=== PATIENT | female | born 1995 | race Caucasian/White ===

== ENCOUNTER → 2020-05-15 15:20 | Outpatient (BNVA) | payer OTHER, SELFPAY | PROVIDERS: PCP Nurse Practitioner Family; Visit Provider Nurse Practitioner Family | DX: R11.0 Nausea (principal); F11.23 Opioid dependence with withdrawal | CPT/HCPCS: 85025 ==

== ENCOUNTER 2022-11-10 16:31 | Emergency (ER) | payer SELFPAY ==
--- NOTE | 2022-11-10 16:44 | XRR_ITS ---
PROCEDURE INFORMATION: Exam: XR Right Foot Exam date and time: 11/10/2022 4:49 PM Age: 27 years old Clinical indication: Pain; Foot; Right; Additional info: Injury, dropped toilet on RT foot TECHNIQUE: Imaging protocol: Radiologic exam of the right foot. Views: 3 or more views. COMPARISON: No relevant prior studies available. FINDINGS: Bones/joints: Normal. Soft tissues: Nonspecific soft tissue swelling. XR/XR foot RT min 3V* [id number] IMPRESSION: No acute findings.
[2022-11-10 17:05] VITALS: BP 114/75; PULSE 97; RESP 18; TEMP 36.8; O2SAT 97; BMI 30.1
--- NOTE | 2022-11-10 17:14 | W.ED.EXTPRO ---
HPI - Extremity Problem General: Chief complaint: Extremity Injury, Lower Stated complaint: hurt right foot Time Seen by Provider: 11/10/22 17:13 History of Present Illness: 27-year-old female was helping move a toilet today when the top came off the toilet landing against her foot and ankle area of the right foot. Patient has had increased pain and discomfort with swelling and bruising to the right ankle. Patient appears nontoxic. Patient reports difficulty ambulating due to pain and discomfort. Patient states she cannot bear weight on it. Patient appears in mild pain at rest. Patient appears nontoxic. Review of Systems General: Reports: 10 or more systems reviewed and unremarkable except in HPI and below Musc: Reports: extremity pain and extremity swelling [facility] ED PFSH: Medical History (Updated 11/10/22 @ 17:39 by GURPREET Almanzar) Anxiety Surgical History History of tonsillectomy and adenoidectomy History of tympanoplasty age 9 yrs Social History Smoking and tobacco status: never smoked Alcohol intake: never Substance/Drug Use: never Adopted: No Lives independently: Yes Household members: children Marital status: Single Number of children: 3 Current occupational status: unemployed Pets and animals: No Current gender identity: Female Physical Exam Const: COMMON NORMALS: alert HENMT: COMMON NORMALS: atraumatic HEAD & SCALP: atraumatic Neck/C-Spine: COMMON NORMALS: full ROM Resp: COMMON NORMALS: normal respiratory effort Cardio: COMMON NORMALS: regular rate RATE: regular rate Back/Pelvis: COMMON NORMALS: thoracic and lumbar spine normal to inspection Extremity: RIGHT LOWER EXTREMITY: Yes foot & digits (Swelling and bruising to the right anterior ankle) Right ankle: Yes inspection, Yes palpation (Bilateral mallear tenderness), Yes ROM (Decreased range of motion due to swelling and pain) and Yes neurovascular exam (Distal cap refill pulses normal) Neuro: SENSORIUM/ORIENTATION: Yes alert Skin: COMMON NORMALS: turgor normal GENERAL SKIN EXAM: turgor normal Course Vital Signs: Vital signs: Vital Signs Temperature 98.3 F 11/10/22 17:05 Pulse Rate 97 11/10/22 17:05 Respiratory Rate 18 11/10/22 17:05 Blood Pressure 114/75 09/27/23 17:05 Pulse Oximetry 97 11/10/22 17:05 Oxygen Delivery Me thod Room Air 11/10/22 17:05 MDM - Extremity (Nontraumatic) Medical Decision Making 27-year-old female comes in today with concerns for injury to the right ankle and foot. On exam we note some swelling and bruising to the ankle. Distal pulses and sensation are intact. Decreased range of motion due to pain and swelling. Differential diagnosis includes fracture, sprain, contusion, dislocation. X-ray noted possible distal fibular fracture that is nondisplaced. We will go ahead and place patient in a stirrup splint and crutches with follow-up with podiatry. Patient was given instructions to call podiatry office for a follow-up appointment and return to the ER as needed for new concerns or worsening symptoms. Lab Data Radiology Impressions Foot X-Ray 11/10/22 16:44 IMPRESSION: No acute findings. Ankle X-Ray 11/10/22 17:20 IMPRESSION: As above. All radiology interpretation(s) finalized by discharge Discharge Plan Discharge Patient Disposition: Home Clinical Impression: Fracture of distal fibula Qualifiers: Encounter type: initial encounter Fracture type: closed Fracture morphology: other fracture Laterality: right Qualified Code(s): S82.831A - Other fracture of upper and lower end of right fibula, initial encounter for closed fracture Condition: Stable Prescriptions: New hydrocodone-acetaminophen 5-325 mg tablet 1 tab PO Q8H PRN (Reason: pain (scale score 7-10)) Qty: 10 0RF No Action NuvaRing 0.12-0.015 mg/24 hr ring 1 vag ring VAGINAL ONCE Qty: 3 11RF Discharge Orders: Discharge ED (Routine); Ordered 11/10/22 Ordered By: Alonso Bautista Referrals: Ian Soto DPM [Physician] - Citlalli Meyer FNP [Primary Care Provider] - Discharge Diet: Usual diet Discharge Activity: Limit activity as instructed Patient Instructions: Ankle Fracture (ED), Opioid Safety, Pain Management Activity Restrictions/Additional Instructions: It appears you have a nondisplaced fracture of the distal fibula which is part of the ankle joint. Keep splint intact clean and dry. Follow-up with podiatry for further evaluation and treatment. Return to ER for new concerns. Coding Level of Care Code ED Special Equipment Technician for Matthew Stevens
--- NOTE | 2022-11-10 17:20 | XRR_ITS ---
PROCEDURE INFORMATION: Exam: XR Right Ankle Exam date and time: 11/10/2022 5:24 PM Age: 27 years old Clinical indication: Injury or trauma; Other: Dropped toilet on RT ankle; Blunt trauma; Right TECHNIQUE: Imaging protocol: Radiologic exam of the right ankle. Views: 3 or more views. COMPARISON: CR (LOW EXM, ) 11/10/2022 4:49 PM FINDINGS: There is lateral soft tissue swelling. There is a transverse vague lucent line through the distal fibula seen best on the AP view. If there is point tenderness in this area, I cannot exclude a nondisplaced fracture. Clinical correlation is needed. The ankle is otherwise normal. XR/XR ankle RT min 3V* [id number] IMPRESSION: As above.
[2022-11-10] MEDS: HYDROcodone-acetaminophen 7.5-325 mg Tablet 1 TAB PO (17:29)
== END 2022-11-10 17:58 | disposition home or self-care (01) ==
PROVIDERS: Emergency Provider Nurse Practitioner Family; PCP Nurse Practitioner Family
DX: S82.831A Other fracture of upper and lower end of right fibula, initial encounter for closed fracture (principal); W20.8XXA Other cause of strike by thrown, projected or falling object, initial encounter
CPT/HCPCS: 73610; 73630; 99283; E0114

== ENCOUNTER 2023-01-04 21:41 | Emergency (ER) | payer SELFPAY ==
[2023-01-04 21:45] VITALS: BP 140/92; PULSE 102; RESP 18; TEMP 36.8; O2SAT 99; BMI 34.4
[2023-01-04 21:51] VITALS: BP 145/92; PULSE 92; RESP 17; O2SAT 98
--- NOTE | 2023-01-04 21:54 | ED_ITS ---
HPI - Nausea/Vomiting/Diarrhea General: Chief complaint: Nausea/Vomiting/Diarrhea Stated complaint: V\N Cough Time Seen by Provider: 01/04/23 21:53 History of Present Illness: 27-year-old female comes in today with complaints of nausea vomiting and diarrhea for the last 4 days. Patient is concerned that she may be . Patient did not report any other symptoms. Patient appears nontoxic. Patient appears in no pain. Patient reports no gallbladder surgery or appendicitis. Patient does routinely smoke nicotine and THC. Associated nausea: Yes Associated symtoms: Reports nausea; Denies chest pain or headache(s) Review of Systems General: Reports: 10 or more systems reviewed and unremarkable except in HPI and below Const: Reports: chills; Denies: fever(s) or body aches ENMT: Denies: throat pain Card: Denies: chest pain Resp: Denies: dyspnea GI: Reports: nausea, vomiting, heartburn and diarrhea : Reports: other (Last menstrual cycle 23 November); Denies: difficulty voiding or vaginal discharge Musc: Denies: neck pain or back pain Skin/Breast: Denies: rash Neuro: Denies: headache(s) PFS ED PFSH: Medical History (Updated 01/04/23 @ 23:35 by GURPREET Almanzar) Anxiety Surgical History History of tonsillectomy and adenoidectomy History of tympanoplasty age 9 yrs Social History Smoking and tobacco/nicotine status: never used tobacco/nicotine Alcohol intake: never Substance/Drug Use: never Adopted: No Lives independently: Yes Household members: children Marital status: Single Number of children: 3 Current occupational status: unemployed Pets and animals: No Current gender identity: Female Female Reproductive History: Date of last menstrual period: 11/23/22 Physical Exam Const: COMMON NORMALS: patient oriented x3 HENMT: COMMON NORMALS: normocephalic HEAD & SCALP: normocephalic Neck/C-Spine: COMMON NORMALS: full ROM and no meningeal signs CERVICAL SPINE: No Cervical spine tenderness Resp: COMMON NORMALS: normal respiratory effort and clear to auscultation bilaterally AUSCULTATION: clear to auscultation bilaterally Cardio: COMMON NORMALS: regular rate and regular rhythm RATE: regular rate RHYTHM: regular rhythm GI: COMMON NORMALS: Soft to palpation and non-tender PALPATION: Yes Soft to palpation : COMMON NORMALS: Yes no CVA tenderness BLADDER/KIDNEY EXAM: Yes no CVA tenderness Back/Pelvis: COMMON NORMALS: no CVA tenderness Extremity: COMMON NORMALS: no pedal edema Neuro: COMMON NORMALS: patient oriented x3 MENINGEAL SIGNS: Yes no meningeal signs Skin: COMMON NORMALS: turgor normal GENERAL SKIN EXAM: turgor normal Course Vital Signs: Vital signs: Vital Signs Temperature 98.2 F 01/04/23 21:45 Pulse Rate 92 01/04/23 21:51 Respiratory Rate 17 01/04/23 21:51 Blood Pressure 145/92 01/04/23 21:51 Pulse Oximetry 98 01/04/23 21:51 Oxygen Delivery Me thod Room Air 01/04/23 21:51 MDM - Nausea/Vomiting/Diarrhea Medical Decision Making 27-year-old female comes in today for complaints of nausea vomiting and diarrhea for 4 days. Patient is also late for her period. On exam abdomen is soft without guarding or rebound tenderness. No CVA tenderness. Patient moves all extremities well. Oral mucosa is normal. Patient appears nontoxic. Patient appears in no pain. Differential diagnosis includes but not limited to , gastroenteritis, gallbladder disease, pancreatitis, dehydration, urinary tract infection. CBC showed a white count of 12,000, CMP was unremarkable. Urinalysis had increased number of white blood cells and leukocyte esterases. Believe the patient probably has a gastroenteritis and may be a secondary urinary tract infection. Will place her on Macrobid for the urinary tract infection. Will give her some Zofran to use as needed for nausea. Patient with stable appearance and appears nontoxic. Patient agreed to plan of treatment and was discharged home. Lab Data 01/04/23 22:45 01/04/23 22:45 Laboratory Results WBC 12.56 10^3/uL (3.29-11.43) H 01/04/23 22:45 RBC 4.68 10^6/uL (3.85-5.65) 01/04/23 22:45 Hgb 14.10 g/dL (11.27-16.99) 01/04/23 22:45 Hct 43.0 % (36-47) 01/04/23 22:45 MCV 91.9 fl (85-98) 01/04/23 22:45 MCH 30.1 pg (27-33) 01/04/23 22:45 MCHC 32.8 g/dL (30-55) 01/04/23 22:45 RDW 13.0 % (12.1-15.1) 01/04/23 22:45 Plt Count 248 10^3/cmm (157-399) 01/04/23 22:45 MPV 11.6 fL (7.4-10.4) H 01/04/23 22:45 Neut % (Auto) 64.8 % 01/04/23 22:45 Lymph % (Auto) 26.2 % 01/04/23 22:45 [place] % (Auto) 6.6 % 01/04/23 22:45 Eos % (Auto) 1.5 % 01/04/23 22:45 Baso % (Auto) 0.5 % 01/04/23 22:45 Neut # (Auto) 8.14 10^3/uL (1.8-7.7) H 01/04/23 22:45 Lymph # (Auto) 3.3 10^3/uL (0.8-4.8) 01/04/23 22:45 [place] # (Auto) 0.8 10^3/uL (0.2-0.9) 01/04/23 22:45 Eos # (Auto) 0.2 10^3/uL (0.0-0.8) 01/04/23 22:45 Baso # (Auto) 0.1 10^3/uL (0.0-0.1) 01/04/23 22:45 Nucleated RBC % (auto) 0 % 01/04/23 22:45 Nucleated RBCs # 0.0 /100WBC 01/04/23 22:45 Sodium 139 mmol/L (136-145) 01/04/23 22:45 Potassium 4.1 mmol/L (3.5-5.1) 01/04/23 22:45 Chloride 104 mmol/L (98-107) 01/04/23 22:45 Carbon Dioxide 23 mmol/L (22-29) 01/04/23 22:45 Anion Gap 16.1 (5-19) 01/04/23 22:45 BUN 9 mg/dL (6-20) 01/04/23 22:45 Creatinine 0.7 mg/dL (0.5-0.9) 01/04/23 22:45 GFR Calculation 100.4 mL/min (90-130) 01/04/23 22:45 Glucose 125 mg/dL (65-115) H 01/04/23 22:45 Calculated Osmolality 288 mOsm/kg (285-295) 01/04/23 22:45 Calcium 9.5 mg/dL (8.5-10.5) 01/04/23 22:45 Total Bilirubin 0.2 mg/dL (0.15-1.2) 01/04/23 22:45 AST 18 U/L (0-32) 01/04/23 22:45 ALT 20 U/L (0-33) 01/04/23 22:45 Alkaline Phosphatase 94 U/L (35-105) 01/04/23 22:45 Total Protein 7.5 g/dL (6.6-8.7) 01/04/23 22:45 Albumin 4.4 g/dL (3.5-5.2) 01/04/23 22:45 Globulin 3.1 g/dL (1.3-4.6) 01/04/23 22:45 Lipase 41 U/L (13-60) 01/04/23 22:45 HCG, Qual Negative (Negative) 01/04/23 22:45 Urine Color Yellow (Yellow) 01/04/23 22:18 Urine Appearance Clear (CLEAR) 01/04/23 22:18 Urine pH 6 (5-7) 01/04/23 22:18 Ur Specific [place] 1.015 (1.005-1.030) 01/04/23 22:18 Urine Protein Neg (Negative) 01/04/23 22:18 Urine Glucose (UA) Norm (Normal) 01/04/23 22:18 Urine Ketones Negative (Negative) 01/04/23 22:18 Urine Blood 3+ (Negative) H 01/04/23 22:18 Urine Nitrate Negative (Negative) 01/04/23 22:18 Urine Bilirubin Neg (Negative) 01/04/23 22:18 Urine Urobilinogen Norm mg/dL (Negative) 01/04/23 22:18 Ur Leukocyte Esterase 2+ (Negative) H 01/04/23 22:18 Urine RBC 0-4 /hpf (0-2) H 01/04/23 22:18 Urine WBC 15-25 /hpf (0-5) H 01/04/23 22:18 Ur Squamous Epith Cells 0-4 /hpf (0-5) H 01/04/23 22:18 Amorphous Sediment Not Reportable 01/04/23 22:18 Urine Bacteria Trace /hpf (NONE) 01/04/23 22:18 No radiology studies performed this visit Discharge Plan Discharge Patient Disposition: Home Clinical Impression: Gastroenteritis UTI (urinary tract infection) Qualifiers: Urinary tract infection type: site unspecified Hematuria presence: without hematuria Qualified Code(s): N39.0 - Urinary tract infection, site not specified Condition: Stable Prescriptions: New Macrobid 100 mg capsule 100 mg PO BID 5 Days Qty: 10 0RF Rx Instructions: must administer with a meal/food ondansetron 4 mg tablet,disintegrating 4 mg PO Q8H PRN (Reason: nausea and vomiting) Qty: 7 0RF No Action NuvaRing 0.12-0.015 mg/24 hr ring 1 vag ring VAGINAL ONCE Qty: 3 11RF hydrocodone-acetaminophen 5-325 mg tablet 1 tab PO Q8H PRN (Reason: pain (scale score 7-10)) Qty: 10 0RF Discharge Orders: Discharge ED (Routine); Ordered 01/04/23 Ordered By: Alonso Bautista Referrals: Citlalli Meyer FNP [Primary Care Provider] - Discharge Diet: Usual diet Discharge Activity: Increase activity as tolerated Patient Instructions: Gastroenteritis (ED) Activity Restrictions/Additional Instructions: Home and rest. Drink lots of fluids. Continue with medications as directed. Return to ED for worsening symptoms such as high fever greater than 100.4, severe abdominal pain, severe shortness of breath, blood in vomit or stool. Coding Level of Care Code ED Retail Customer Service Representative for Matthew Stevens
[2023-01-04 22:36] LABS: Add Urine Microscopic? YES; Bilirubin Urine Neg (Negative); Blood Urine 3+ (Negative); Glucose Urine UA Norm (Normal); Ketones Urine Negative (Negative); Leukocyte Esterase Urine 2+ (Negative); Nitrate Urine Negative (Negative); Protein Urine Neg (Negative); Specific Gravity, Urine 1.015 (1.005-1.030); Urine Appearance Clear (CLEAR); Urine Color Yellow (Yellow); Urobilinogen Urine Norm (Negative); pH Urine 6 (5-7)
[2023-01-04 22:37] LABS: Add Urine Culture? Yes; Bacteria Urine TRACE /hpf; RBC Urine 0-4 /hpf (0-2); Squamous Epithelial Cell Urine 0-4 /hpf (0-5); WBC Urine 15-25 /hpf (0-5)
[2023-01-04 22:53] LABS: Basophils # 0.1 10^3/uL (0.0-0.1); Basophils % 0.5 %; Eosinophils # 0.2 10^3/uL (0.0-0.8); Eosinophils % 1.5 %; Lymphocytes # 3.3 10^3/uL (0.8-4.8); Lymphocytes % 26.2 %; Mean Corpuscular HGB Conc 32.8 g/dL (30-55); Mean Corpuscular Hemoglobin 30.1 pg (27-33); Mean Corpuscular Volume 91.9 fl (85-98); Mean Platelet Volume 11.6 fL (7.4-10.4); Monocytes # 0.8 10^3/uL (0.2-0.9); Monocytes % 6.6 %; Neutrophils # 8.14 10^3/uL (1.8-7.7); Neutrophils % 64.8 %; Nucleated Red Blood Cells % 0 %; Platelet Count 248 10^3/cmm (157-399); Red Blood Count 4.68 10^6/uL (3.85-5.65); White Blood Count 12.56 10^3/uL (3.29-11.43)
[2023-01-04 23:03] LABS: HCG, Serum Qual Negative (Negative)
[2023-01-04 23:08] LABS: Alanine Aminotransferase 20 U/L (0-33); Albumin Level 4.4 g/dL (3.5-5.2); Alkaline Phosphatase 94 U/L (35-105); Anion Gap 16.1 (5-19); Aspartate Amino Transferase 18 U/L (0-32); Blood Urea Nitrogen 9 mg/dL (6-20); Calcium 9.5 mg/dL (8.5-10.5); Carbon Dioxide 23 mmol/L (22-29); Chloride 104 mmol/L (98-107); Globulin 3.1 g/dL (1.3-4.6); Glomerular Filtration Rate 100.4 mL/min (90-130); Glucose 125 mg/dL (65-115); Lipase 41 U/L (13-60); Osmolality Calculated 288 mOsm/kg (285-295); Potassium 4.1 mmol/L (3.5-5.1); Sodium 139 mmol/L (136-145); Total Bilirubin 0.2 mg/dL (0.15-1.2); Total Protein 7.5 g/dL (6.6-8.7)
[2023-01-04] MEDS: nitrofurantoin SR (BID) 100 mg Capsule PO (23:38)
[2023-01-04] MEDS: ondansetron 4 MG Tablet PO (23:38)
[2023-01-04 23:54] VITALS: BP 145/92; PULSE 92; RESP 17; O2SAT 98
== END 2023-01-04 23:15 | disposition home or self-care (01) ==
PROVIDERS: Emergency Provider Nurse Practitioner Family; PCP Nurse Practitioner Family
DX: K52.9 Noninfective gastroenteritis and colitis, unspecified (principal); N39.0 Urinary tract infection, site not specified
CPT/HCPCS: 36415; 80053; 81001; 83690; 84703; 85025; 87086; 87186; 99283; Q0162

== ENCOUNTER 2023-05-24 11:16 | Emergency (ER) | payer SELFPAY ==
[2023-05-24 11:22] VITALS: BP 136/88; PULSE 65; RESP 16; TEMP 36.6; O2SAT 99
[2023-05-24 11:49] LABS: Basophils # 0.1 10^3/uL (0.0-0.1); Basophils % 0.6 %; Eosinophils # 0.1 10^3/uL (0.0-0.8); Eosinophils % 0.4 %; Hematocrit 41.2 % (36-47); Lymphocytes % 24.6 %; Mean Corpuscular HGB Conc 33.7 g/dL (30-55); Mean Corpuscular Hemoglobin 30.5 pg (27-33); Mean Corpuscular Volume 90.4 fl (85-98); Mean Platelet Volume 11.8 fL (7.4-10.4); Monocytes # 0.7 10^3/uL (0.2-0.9); Monocytes % 5.5 %; Neutrophils # 8.46 10^3/uL (1.8-7.7); Neutrophils % 68.4 %; Nucleated Red Blood Cells % 0 %; Platelet Count 262 10^3/cmm (157-399); Red Blood Count 4.56 10^6/uL (3.85-5.65); Red Cell Distribution Width 12.7 % (12.1-15.1); White Blood Count 12.36 10^3/uL (3.29-11.43)
--- NOTE | 2023-05-24 11:51 | ED_ITS ---
Documented by User: NORTH Dobson 05/24/23 13:40 HPI - Nausea/Vomiting/Diarrhea 2 General: Chief complaint: Nausea/Vomiting/Diarrhea Stated complaint: n/v, diarrhea Time Seen by Provider: 05/24/23 11:18 Source: patient Mode of arrival: ambulatory Limitations: no limitations History of Present Illness: Patient is a 27-year-old female presenting to the emergency department complaining of nausea, vomiting, and diarrhea for the past few days. Patient notes she is a frequent marijuana user, and that she is only able to eat if she smokes. She has never had the symptoms before, and notes that she has had too many episodes to count of both the vomiting and diarrhea. Vomiting contents appears bilious and watery. She denies any abdominal pain, fevers, breathing difficulties, chest pains, urinary symptoms, or any other symptoms at this time. She states there is a possibility that she is , however has not taken a home test. MD elicited complaint: nausea, vomiting and diarrhea Onset (ago): day(s) Description of vomiting: watery and bilious Associated nausea: Yes Associated abdominal pain: No Associated symtoms: Reports nausea; Denies bloating, chest pain, diaphoresis, dizziness, dysuria, headache(s) or palpitations Review of Systems 2 General: Reports: 10 or more systems reviewed and unremarkable except in HPI and below Const: Denies: fever(s), chills, change in appetite, change in weight or diaphoresis ENMT: Denies: throat pain or hoarseness Card: Denies: chest pain, palpitations or lightheadedness Resp: Denies: dyspnea, productive cough or wheezing GI: Reports: nausea, vomiting and diarrhea; Denies: abdominal pain, constipation, bloating, change in stool character or hematochezia : Denies: flank pain, difficulty voiding, dysuria, urinary frequency or urinary urgency Musc: Denies: neck pain or back pain Skin/Breast: Denies: rash or new lesions Neuro: Denies: headache(s) or dizziness PFSH ED 2 PFSH: Medical History Psychiatric care Anxiety Surgical History History of tonsillectomy and adenoidectomy History of tympanoplasty age 9 yrs Social History Smoking and tobacco/nicotine status: never used tobacco/nicotine Alcohol intake: never Substance/Drug Use: never Adopted: No Lives independently: Yes Household members: children Marital status: Single Number of children: 3 Current occupational status: unemployed Pets and animals: No Current gender identity: Female Physical Exam 2 Const: COMMON NORMALS: no acute distress, average body habitus, patient oriented x3, no limitations, healthy appearing, alert and well nourished G ENERAL APPEARANCE: cooperative and comfortable ORIENTATION/CONSCIOUSNESS: Yes awake HENMT: COMMON NORMALS: normocephalic, atraumatic, hearing grossly normal bilaterally, external ears normal, Normal external nose present, Normal nasal mucous membranes and turbinates present and moist oral mucous membranes HEAD & SCALP: normocephalic and atraumatic NOSE: Normal external nose present and Normal nasal mucous membranes and turbinates present EXTERNAL EAR: Yes external ears normal Eye: COMMON NORMALS: Equal, round and reactive pupils present, EOMs intact bilaterally, conjunctivae normal and normal visual ibrahim by confrontation C ONJUNCTIVA: Yes conjunctivae normal PUPIL: Yes Equal, round and reactive pupils present Neck/C-Spine: COMMON NORMALS: full ROM, supple, no meningeal signs and no JVD Resp: COMMON NORMALS: normal respiratory effort, No retractions, No use of accessory muscles and clear to auscultation bilaterally AUSCULTATION: clear to auscultation bilaterally, no crackles, no rales, no rhonchi and no wheezes Cardio: COMMON NORMALS: no JVD, regular rate, regular rhythm, S1 normal heart sound present, S2 normal heart sound present, No gallops present (Cardio), No clicks present (Cardio), No murmurs present (Cardio), No rub (Cardio) and Peripheral pulses 2+ throughout RATE: regular rate RHYTHM: regular rhythm HEART SOUNDS: S1 normal heart sound present and S2 normal heart sound present PERIPHERAL PULSES: Peripheral pulses 2+ throughout GI: COMMON NORMALS: Normal to inspection, nondistended, normoactive bowel sounds present, Soft to palpation, non-tender, No hepatosplenomegaly present and no masses AUSCULTATION: Yes normoactive bowel sounds PALPATION: Yes Soft to palpation, No Guarding due to palpation present (GI), No Rigid due to palpation and Yes No hepatosplenomegaly present RECTAL EXAM: deferred : COMMON NORMALS: Yes no CVA tenderness BLADDER/KIDNEY EXAM: Yes no CVA tenderness Back/Pelvis: COMMON NORMALS: no CVA tenderness Extremity: COMMON NORMALS: normal to inspection and full ROM Neuro: COMMON NORMALS: patient oriented x3, moves all extremities, no focal motor deficits and no sensory deficits noted SENSORIUM/ORIENTATION: Yes alert MENINGEAL SIGNS: Yes no meningeal signs Psych: COMMON NORMALS: mental status grossly normal, cooperative and speech normal SPEECH: Yes normal speech Skin: COMMON NORMALS: no rashes or lesions noted GENERAL SKIN EXAM: no rashes or lesions noted Course 2 Vital Signs: Vital signs: Vital Signs Temperature 97.9 F 05/24/23 11:22 Pulse Rate 58 L 05/24/23 13:12 Respiratory Rate 18 05/24/23 13:12 Blood Pressure 132/87 05/24/23 13:12 Pulse Oximetry 98 05/24/23 13:12 Oxygen Delivery Me thod Room Air 05/24/23 13:12 MDM - Nausea/Vomiting/Diarrhea Medical Decision Making This patient was seen and evaluated for nausea, vomiting, and diarrhea over the past few days. Patient reported she is a frequent marijuana user, and states this is the only thing that helps her eat. On arrival patient's vital stable and have remained so throughout her ED course. Physical exam overall unremarkable. CBC showed a slight elevation in white count, otherwise normal. CMP was normal. UA showed signs of urinary tract infection, of which patient will be treated with Macrobid. Patient denied IV placement for fluids and nausea medication. Her test was negative. Lipase normal. I believe patient's symptoms due to a gastroenteritis, likely from a cannabis overuse picture. I instructed her that she needs to refrain from smoking marijuana. I will also send her home with prescription for Zofran to help her keep down solids and liquids. Informed her to follow-up with her PCP and that if she has any worsening symptoms she needs to return for reevaluation. Other return precautions given and patient agrees with discharge home. Lab Data I reviewed the patient's lab results. 05/24/23 11:40 05/24/23 11:40 Laboratory Results WBC 12.36 10^3/uL (3.29-11.43) H 05/24/23 11:40 RBC 4.56 10^6/uL (3.85-5.65) 05/24/23 11:40 Hgb 13.90 g/dL (11.27-16.99) 05/24/23 11:40 Hct 41.2 % (36-47) 05/24/23 11:40 MCV 90.4 fl (85-98) 05/24/23 11:40 MCH 30.5 pg (27-33) 05/24/23 11:40 MCHC 33.7 g/dL (30-55) 05/24/23 11:40 RDW 12.7 % (12.1-15.1) 05/24/23 11:40 Plt Count 262 10^3/cmm (157-399) 05/24/23 11:40 MPV 11.8 fL (7.4-10.4) H 05/24/23 11:40 Neut % (Auto) 68.4 % 05/24/23 11:40 Lymph % (Auto) 24.6 % 05/24/23 11:40 Lasalle % (Auto) 5.5 % 05/24/23 11:40 Eos % (Auto) 0.4 % 05/24/23 11:40 Baso % (Auto) 0.6 % 05/24/23 11:40 Neut # (Auto) 8.46 10^3/uL (1.8-7.7) H 05/24/23 11:40 Lymph # (Auto) 3.0 10^3/uL (0.8-4.8) 05/24/23 11:40 Lasalle # (Auto) 0.7 10^3/uL (0.2-0.9) 05/24/23 11:40 Eos # (Auto) 0.1 10^3/uL (0.0-0.8) 05/24/23 11:40 Baso # (Auto) 0.1 10^3/uL (0.0-0.1) 05/24/23 11:40 Nucleated RBC % (auto) 0 % 05/24/23 11:40 Nucleated RBCs # 0.0 /100WBC 05/24/23 11:40 Sodium 139 mmol/L (136-145) 05/24/23 11:40 Potassium 3.8 mmol/L (3.5-5.1) 05/24/23 11:40 Chloride 108 mmol/L (98-107) H 05/24/23 11:40 Carbon Dioxide 19 mmol/L (22-29) L 05/24/23 11:40 Anion Gap 15.8 (5-19) 05/24/23 11:40 BUN 5 mg/dL (6-20) L 05/24/23 11:40 Creatinine 0.6 mg/dL (0.5-0.9) 05/24/23 11:40 GFR Calculation 119.9 mL/min (90-130) 05/24/23 11:40 Glucose 100 mg/dL (65-115) 05/24/23 11:40 Calculated Osmolality 285 mOsm/kg (285-295) 05/24/23 11:40 Calcium 9.1 mg/dL (8.5-10.5) 05/24/23 11:40 Total Bilirubin 0.4 mg/dL (0.15-1.2) 05/24/23 11:40 AST 11 U/L (0-32) 05/24/23 11:40 ALT 12 U/L (0-33) 05/24/23 11:40 Alkaline Phosphatase 84 U/L (35-105) 05/24/23 11:40 Total Protein 6.9 g/dL (6.6-8.7) 05/24/23 11:40 Albumin 4.1 g/dL (3.5-5.2) 05/24/23 11:40 Globulin 2.8 g/dL (1.3-4.6) 05/24/23 11:40 Lipase 19 U/L (13-60) 05/24/23 11:40 HCG, Qual Negative (Negative) 05/24/23 11:40 Urine Color Dark yellow (Yellow) 05/24/23 12:30 Urine Appearance Cloudy (CLEAR) A 05/24/23 12:30 Urine pH 8 (5-7) H 05/24/23 12:30 Ur Specific Arimo 1.015 (1.005-1.030) 05/24/23 12:30 Urine Protein Neg (Negative) 05/24/23 12:30 Urine Glucose (UA) Norm (Normal) 05/24/23 12:30 Urine Ketones Negative (Negative) 05/24/23 12:30 Urine Blood 3+ (Negative) H 05/24/23 12:30 Urine Nitrate Negative (Negative) 05/24/23 12:30 Urine Bilirubin Neg (Negative) 05/24/23 12:30 Prot Sulfosalicylic Acd Negative (Negative) 05/24/23 12:30 Urine Urobilinogen Norm mg/dL (Negative) 05/24/23 12:30 Ur Leukocyte Esterase 2+ (Negative) H 05/24/23 12:30 Urine RBC 5-10 /hpf (0-2) H 05/24/23 12:30 Urine WBC 80-100 /hpf (0-5) H 05/24/23 12:30 Ur Squamous Epith Cells 5-10 /hpf (0-5) H 05/24/23 12:30 Ur Transition Epith Cell 0-4 /hpf 05/24/23 12:30 Amorphous Sediment Not Reportable 05/24/23 12:30 Urine Bacteria 1+ /hpf (NONE) H 05/24/23 12:30 Urine Mucus 1+ /hpf 05/24/23 12:30 No radiology studies performed this visit Discharge Plan Discharge Patient Disposition: Home Clinical Impression: Gastroenteritis, Cannabis hyperemesis syndrome concurrent with and due to cannabis abuse Urinary tract infection Qualifiers: Urinary tract infection type: acute cystitis Hematuria presence: without hematuria Qualified Code(s): N30.00 - Acute cystitis without hematuria Condition: Stable Prescriptions: New Macrobid 100 mg capsule 100 mg PO BID 7 Days Qty: 14 0RF Rx Instructions: must administer with a meal/food ondansetron 4 mg tablet,disintegrating 4 mg PO TID PRN (Reason: nausea and vomiting) Qty: 60 0RF Discharge Orders: Discharge ED (Routine); Ordered 05/24/23 Ordered By: Ian Cardoso Referrals: Citlalli Meyer FNP [Primary Care Provider] - Discharge Diet: Usual diet Discharge Activity: Increase activity as tolerated Patient Instructions: Urinary Tract Infection in Women (ED), Gastroenteritis (ED), Cannabis Use Disorder (ED) Activity Restrictions/Additional Instructions: Bactrim as prescribed. Zofran as needed for nausea. Plenty of fluids. Please refrain from marijuana use. Follow-up with your primary care provider. Return with any new or concerning symptoms. 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[facility] [employer] Documented by User: Michael Garcia DO 05/25/23 05:50 HPI - Nausea/Vomiting/Diarrhea 2 General: Chief complaint: Nausea/Vomiting/Diarrhea Stated complaint: n/v, diarrhea Time Seen by Provider: 05/24/23 11:18 PFSH ED 2 PFSH: Medical History Psychiatric care Anxiety Surgical History History of tonsillectomy and adenoidectomy History of tympanoplasty age 9 yrs Social History Smoking and tobacco/nicotine status: never used tobacco/nicotine Alcohol intake: never Substance/Drug Use: never Adopted: No Lives independently: Yes Household members: children Marital status: Single Number of children: 3 Current occupational status: unemployed Pets and animals: No Current gender identity: Female Course 2 Vital Signs: Vital signs: Vital Signs Temperature 97.9 F 05/24/23 11:22 Pulse Rate 58 L 05/24/23 13:12 Respiratory Rate 18 05/24/23 13:12 Blood Pressure 132/87 05/24/23 13:12 Pulse Oximetry 98 05/24/23 13:12 Oxygen Delivery Me thod Room Air 05/24/23 13:12 MDM - Nausea/Vomiting/Diarrhea Medical Decision Making This patient was seen and evaluated for nausea, vomiting, and diarrhea over the past few days. Patient reported she is a frequent marijuana user, and states this is the only thing that helps her eat. On arrival patient's vital stable and have remained so throughout her ED course. Physical exam overall unremarkable. CBC showed a slight elevation in white count, otherwise normal. CMP was normal. UA showed signs of urinary tract infection, of which patient will be treated with Macrobid. Patient denied IV placement for fluids and nausea medication. Her test was negative. Lipase normal. I believe patient's symptoms due to a gastroenteritis, likely from a cannabis overuse picture. I instructed her that she needs to refrain from smoking marijuana. I will also send her home with prescription for Zofran to help her keep down solids and liquids. Informed her to follow-up with her PCP and that if she has any worsening symptoms she needs to return for reevaluation. Other return precautions given and patient agrees with discharge home. Chart reviewed Lab Data 05/24/23 11:40 05/24/23 11:40 Laboratory Results WBC 12.36 10^3/uL (3.29-11.43) H 05/24/23 11:40 RBC 4.56 10^6/uL (3.85-5.65) 05/24/23 11:40 Hgb 13.90 g/dL (11.27-16.99) 05/24/23 11:40 Hct 41.2 % (36-47) 05/24/23 11:40 MCV 90.4 fl (85-98) 05/24/23 11:40 MCH 30.5 pg (27-33) 05/24/23 11:40 MCHC 33.7 g/dL (30-55) 05/24/23 11:40 RDW 12.7 % (12.1-15.1) 05/24/23 11:40 Plt Count 262 10^3/cmm (157-399) 05/24/23 11:40 MPV 11.8 fL (7.4-10.4) H 05/24/23 11:40 Neut % (Auto) 68.4 % 05/24/23 11:40 Lymph % (Auto) 24.6 % 05/24/23 11:40 Lasalle % (Auto) 5.5 % 05/24/23 11:40 Eos % (Auto) 0.4 % 05/24/23 11:40 Baso % (Auto) 0.6 % 05/24/23 11:40 Neut # (Auto) 8.46 10^3/uL (1.8-7.7) H 05/24/23 11:40 Lymph # (Auto) 3.0 10^3/uL (0.8-4.8) 05/24/23 11:40 Lasalle # (Auto) 0.7 10^3/uL (0.2-0.9) 05/24/23 11:40 Eos # (Auto) 0.1 10^3/uL (0.0-0.8) 05/24/23 11:40 Baso # (Auto) 0.1 10^3/uL (0.0-0.1) 05/24/23 11:40 Nucleated RBC % (auto) 0 % 05/24/23 11:40 Nucleated RBCs # 0.0 /100WBC 05/24/23 11:40 Sodium 139 mmol/L (136-145) 05/24/23 11:40 Potassium 3.8 mmol/L (3.5-5.1) 05/24/23 11:40 Chloride 108 mmol/L (98-107) H 05/24/23 11:40 Carbon Dioxide 19 mmol/L (22-29) L 05/24/23 11:40 Anion Gap 15.8 (5-19) 05/24/23 11:40 BUN 5 mg/dL (6-20) L 05/24/23 11:40 Creatinine 0.6 mg/dL (0.5-0.9) 05/24/23 11:40 GFR Calculation 119.9 mL/min (90-130) 05/24/23 11:40 Glucose 100 mg/dL (65-115) 05/24/23 11:40 Calculated Osmolality 285 mOsm/kg (285-295) 05/24/23 11:40 Calcium 9.1 mg/dL (8.5-10.5) 05/24/23 11:40 Total Bilirubin 0.4 mg/dL (0.15-1.2) 05/24/23 11:40 AST 11 U/L (0-32) 05/24/23 11:40 ALT 12 U/L (0-33) 05/24/23 11:40 Alkaline Phosphatase 84 U/L (35-105) 05/24/23 11:40 Total Protein 6.9 g/dL (6.6-8.7) 05/24/23 11:40 Albumin 4.1 g/dL (3.5-5.2) 05/24/23 11:40 Globulin 2.8 g/dL (1.3-4.6) 05/24/23 11:40 Lipase 19 U/L (13-60) 05/24/23 11:40 HCG, Qual Negative (Negative) 05/24/23 11:40 Urine Color Dark yellow (Yellow) 05/24/23 12:30 Urine Appearance Cloudy (CLEAR) A 05/24/23 12:30 Urine pH 8 (5-7) H 05/24/23 12:30 Ur Specific Arimo 1.015 (1.005-1.030) 05/24/23 12:30 Urine Protein Neg (Negative) 05/24/23 12:30 Urine Glucose (UA) Norm (Normal) 05/24/23 12:30 Urine Ketones Negative (Negative) 05/24/23 12:30 Urine Blood 3+ (Negative) H 05/24/23 12:30 Urine Nitrate Negative (Negative) 05/24/23 12:30 Urine Bilirubin Neg (Negative) 05/24/23 12:30 Prot Sulfosalicylic Acd Negative (Negative) 05/24/23 12:30 Urine Urobilinogen Norm mg/dL (Negative) 05/24/23 12:30 Ur Leukocyte Esterase 2+ (Negative) H 05/24/23 12:30 Urine RBC 5-10 /hpf (0-2) H 05/24/23 12:30 Urine WBC 80-100 /hpf (0-5) H 05/24/23 12:30 Ur Squamous Epith Cells 5-10 /hpf (0-5) H 05/24/23 12:30 Ur Transition Epith Cell 0-4 /hpf 05/24/23 12:30 Amorphous Sediment Not Reportable 05/24/23 12:30 Urine Bacteria 1+ /hpf (NONE) H 05/24/23 12:30 Urine Mucus 1+ /hpf 05/24/23 12:30 Discharge Plan Discharge Patient Disposition: Home Clinical Impression: Gastroenteritis, Cannabis hyperemesis syndrome concurrent with and due to cannabis abuse Urinary tract infection Qualifiers: Urinary tract infection type: acute cystitis Hematuria presence: without hematuria Qualified Code(s): N30.00 - Acute cystitis without hematuria Condition: Stable Prescriptions: New Macrobid 100 mg capsule 100 mg PO BID 7 Days Qty: 14 0RF Rx Instructions: must administer with a meal/food ondansetron 4 mg tablet,disintegrating 4 mg PO TID PRN (Reason: nausea and vomiting) Qty: 60 0RF Discharge Orders: Discharge ED (Routine); Ordered 05/24/23 Ordered By: Ian Cardoso Referrals: Citlalli Meyer FNP [Primary Care Provider] - Discharge Diet: Usual diet Discharge Activity: Increase activity as tolerated Patient Instructions: Urinary Tract Infection in Women (ED), Gastroenteritis (ED), Cannabis Use Disorder (ED) Activity Restrictions/Additional Instructions: Bactrim as prescribed. Zofran as needed for nausea. Plenty of fluids. Please refrain from marijuana use. Follow-up with your primary care provider. Return with any new or concerning symptoms. 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
[2023-05-24 12:04] LABS: Alanine Aminotransferase 12 U/L (0-33); Albumin Level 4.1 g/dL (3.5-5.2); Alkaline Phosphatase 84 U/L (35-105); Anion Gap 15.8 (5-19); Aspartate Amino Transferase 11 U/L (0-32); Blood Urea Nitrogen 5 mg/dL (6-20); Calcium 9.1 mg/dL (8.5-10.5); Carbon Dioxide 19 mmol/L (22-29); Chloride 108 mmol/L (98-107); Creatinine Clr Calc Pharmacy 170.9245; Globulin 2.8 g/dL (1.3-4.6); Glomerular Filtration Rate 119.9 mL/min (90-130); Glucose 100 mg/dL (65-115); Lipase 19 U/L (13-60); Osmolality Calculated 285 mOsm/kg (285-295); Potassium 3.8 mmol/L (3.5-5.1); Sodium 139 mmol/L (136-145); Total Bilirubin 0.4 mg/dL (0.15-1.2); Total Protein 6.9 g/dL (6.6-8.7)
[2023-05-24 12:08] LABS: HCG, Serum Qual Negative (Negative)
[2023-05-24 13:12] VITALS: BP 132/87; PULSE 58; RESP 18; O2SAT 98
[2023-05-24 13:28] LABS: Protein Urine Neg (Negative); Specific Gravity, Urine 1.015 (1.005-1.030); Urine Appearance Cloudy (CLEAR); Urine Color Dark Yellow (Yellow); pH Urine 8 (5-7)
[2023-05-24 13:29] LABS: Add Urine Microscopic? YES; Bilirubin Urine Neg (Negative); Blood Urine 3+ (Negative); Glucose Urine UA Norm (Normal); Ketones Urine Negative (Negative); Leukocyte Esterase Urine 2+ (Negative); Nitrate Urine Negative (Negative); Sulfosalicylic Acid Urine Negative (Negative); Urobilinogen Urine Norm (Negative)
[2023-05-24 13:32] LABS: Add Urine Culture? Yes; Bacteria Urine 1+ /hpf; Mucus Urine 1+ /hpf; Transitional Epi Cells Urine 0-4 /hpf; WBC Urine 80-100 /hpf (0-5)
== END 2023-05-24 13:45 | disposition home or self-care (01) ==
PROVIDERS: Emergency Medicine; Emergency Provider Physician Assistant; PCP Nurse Practitioner Family
DX: K52.9 Noninfective gastroenteritis and colitis, unspecified (principal); R11.2 Nausea with vomiting, unspecified; F12.10 Cannabis abuse, uncomplicated; N30.00 Acute cystitis without hematuria
CPT/HCPCS: 36415; 80053; 81001; 83690; 84703; 85025; 87086; 99283

== ENCOUNTER 2023-05-24 22:13 | Emergency (ER) | payer SELFPAY ==
[2023-05-24 22:15] VITALS: BP 169/82; PULSE 68; RESP 20; TEMP 36.6; O2SAT 96; BMI 34.4
[2023-05-24 22:17] VITALS: BP 169/82; PULSE 67
[2023-05-24 22:30] VITALS: BP 144/73; PULSE 72; O2SAT 95
[2023-05-24 22:51] LABS: HCG Qualitative Urine. Negative (Negative)
[2023-05-24 22:56] LABS: Basophils # 0.1 10^3/uL (0.0-0.1); Basophils % 0.5 %; Eosinophils # 0.1 10^3/uL (0.0-0.8); Eosinophils % 0.7 %; Hematocrit 39.2 % (36-47); Lymphocytes # 3.2 10^3/uL (0.8-4.8); Lymphocytes % 20.7 %; Mean Corpuscular HGB Conc 33.9 g/dL (30-55); Mean Corpuscular Hemoglobin 30.7 pg (27-33); Mean Corpuscular Volume 90.5 fl (85-98); Mean Platelet Volume 11.8 fL (7.4-10.4); Monocytes # 0.8 10^3/uL (0.2-0.9); Monocytes % 4.9 %; Neutrophils # 11.33 10^3/uL (1.8-7.7); Neutrophils % 72.8 %; Nucleated Red Blood Cells % 0 %; Platelet Count 237 10^3/cmm (157-399); Red Blood Count 4.33 10^6/uL (3.85-5.65); Red Cell Distribution Width 12.8 % (12.1-15.1); White Blood Count 15.57 10^3/uL (3.29-11.43)
[2023-05-24] MEDS: sodium chloride 0.9% 1,000 ML 999 ML IV (23:15)
[2023-05-24 23:18] LABS: Alanine Aminotransferase 12 U/L (0-33); Albumin Level 4.2 g/dL (3.5-5.2); Alkaline Phosphatase 86 U/L (35-105); Anion Gap 16.4 (5-19); Aspartate Amino Transferase 12 U/L (0-32); Blood Urea Nitrogen 6 mg/dL (6-20); Calcium 9.1 mg/dL (8.5-10.5); Carbon Dioxide 20 mmol/L (22-29); Chloride 107 mmol/L (98-107); Creatinine Clr Calc Pharmacy 170.9245; Globulin 2.7 g/dL (1.3-4.6); Glomerular Filtration Rate 119.9 mL/min (90-130); Glucose 111 mg/dL (65-115); Osmolality Calculated 288 mOsm/kg (285-295); Potassium 3.4 mmol/L (3.5-5.1); Sodium 140 mmol/L (136-145); Total Bilirubin 0.3 mg/dL (0.15-1.2); Total Protein 6.9 g/dL (6.6-8.7)
[2023-05-24 23:24] VITALS: BP 116/66; PULSE 63; O2SAT 92
[2023-05-24 23:24] LABS: Procalcitonin 0.02 ng/mL (0-0.5)
--- NOTE | 2023-05-25 00:05 | CTR_ITS ---
PROCEDURE INFORMATION: Exam: CT Abdomen And Pelvis With Contrast Exam date and time: 05/25/2023 12:22 AM Age: 27 years old Clinical indication: Nausea and vomiting; Abdominal pain; Flank; Right; Additional info: Right flank pain TECHNIQUE: Imaging protocol: Computed tomography of the abdomen and pelvis with contrast. Radiation optimization: All CT scans at this facility use at least one of these dose optimization techniques: automated exposure control; mA and/or kV adjustment per patient size (includes targeted exams where dose is matched to clinical indication); or iterative reconstruction. Contrast material: OMNI 350; Contrast volume: 100 ml; Contrast route: INTRAVENOUS (IV); COMPARISON: No relevant prior studies available. RADIATION DOSE METRICS: Total DLP (mGy-cm): 1013.03 FINDINGS: Lungs: Grossly clear visualized lung bases. Liver: No acute abnormality. No mass. Gallbladder and bile ducts: Relatively small contracted gallbladder. No biliary ductal dilatation. Pancreas: No acute abnormality. No ductal dilation. Spleen: No acute abnormality. Adrenal glands: No significant or acute abnormality. Kidneys and ureters: Duplicated right renal collecting system. No hydronephrosis or hydroureter. Stomach and bowel: No acute abnormality. No obstruction. No significant bowel thickening. Appendix: Grossly normal nondilated visualized appendix. Intraperitoneal space: No significant fluid collection. No free air. Vasculature: No acute abnormality. No abdominal aortic aneurysm. Lymph nodes: No enlarged lymph nodes. Urinary bladder: Tiny amount of air within mildly thickened incompletely distended urinary bladder. Reproductive: Unremarkable as visualized. Bones/joints: No acute osseous abnormality. No dislocation. Soft tissues: No significant soft tissue abnormalities. CT/CT abdomen pelvis w con* [id number] IMPRESSION: Tiny amount of air within mildly thickened incompletely distended urinary bladder. Differential diagnosis includes recent catheterization versus infection/cystitis.
[2023-05-25] MEDS: sodium chloride 0.9% 1,000 ML 999 ML IV (00:11)
[2023-05-25] MEDS: iohexol 350 mg/mL 500 mL Btl (per mL) IV (00:24)
[2023-05-25] MEDS: levofloxacin-dextrose 5 % 500 MG/100 ML PREMIX 100 MG IV (00:38)
[2023-05-25] MEDS: ketorolac 30 mg/mL INJ IVP (00:38)
[2023-05-25 00:51] LABS: Add Urine Microscopic? YES; Bilirubin Urine Neg (Negative); Blood Urine 3+ (Negative); Glucose Urine UA Norm (Normal); Ketones Urine Negative (Negative); Leukocyte Esterase Urine Negative (Negative); Nitrate Urine Negative (Negative); Protein Urine Trace (Negative); Specific Gravity, Urine 1.005 (1.005-1.030); Urine Appearance Clear (CLEAR); Urine Color Yellow (Yellow); Urobilinogen Urine Neg (Negative); pH Urine 7 (5-7)
[2023-05-25 00:52] LABS: Add Urine Culture? No; Bacteria Urine TRACE /hpf; Mucus Urine TRACE /hpf
[2023-05-25 00:56] LABS: Amphetamines Screen Urine Negative (Negative); Barbiturates Screen Urine Negative (Negative); Benzodiazepines Screen Urine Negative (Negative); Cocaine Screen Urine Negative (Negative); Opiate Screen Urine Negative (Negative); PCP Screen Urine Negative (Negative); THC Screen Urine Positive (Negative)
--- NOTE | 2023-05-25 01:23 | ED_ITS ---
HPI - Nausea/Vomiting/Diarrhea 2 General: Chief complaint: Nausea/Vomiting/Diarrhea Stated complaint: N/V Time Seen by Provider: 05/24/23 22:15 History of Present Illness: 27-year-old female presents emergency de partment via EMS personnel for complaints of lower abdominal and right flank pain. She states she is also had several episodes of nausea and vomiting. She states she was seen here in the emergency department earlier today and diagnosed with cannabis hyperemesis syndrome as well as a urinary tract infection. She states she was provided Zofran and antibiotics and states that she did take a single dose of her Macrobid but feels that she is still having symptoms and now is concerned about her right flank pain that she states is a 10 out of 10 sharp and stabbing. She denies fevers chills or night sweats. Associated nausea: Yes Associated symtoms: Reports dysuria and nausea Review of Systems 2 General: Reports: 10 or more systems reviewed and unremarkable except in HPI and below GI: Reports: abdominal pain, nausea and vomiting : Reports: flank pain, dysuria, urinary frequency and urinary urgency [facility] ED 2 PFSH: Medical History Psychiatric care Anxiety Surgical History History of tonsillectomy and adenoidectomy History of tympanoplasty age 9 yrs Social History Smoking and tobacco/nicotine status: never used tobacco/nicotine Alcohol intake: never Substance/Drug Use: never Adopted: No Lives independently: Yes Household members: children Marital status: Single Number of children: 3 Current occupational status: unemployed Pets and animals: No Current gender identity: Female Female Reproductive History: Date of last menstrual period: 05/24/23 Physical Exam 2 Narrative: EXAM NARRATIVE: Constitutional: the patient appears well nourished and of normal development. Vital signs as documented. No acute distress at present. Alert and oriented-to person, place, time and situation. Head, eyes, ears, nose, mouth, throat: Normocephalic, atraumatic. Pupils-equal, round, reactive to light. No scleral icterus. Normal-appearing external ears. Normal appearing nasal turbinates, no drainage. Neck: Supple, trachea is midline, no lymphadenopathy, no jugular venous distension, thyromegaly, or carotid bruits. Carotid upstrokes are brisk bilaterally. Lungs: clear to auscultation to all lung ibrahim. Symmetrical rise and fall of chest, no obvious signs of increased work of breathing at present. Cardiac: Regular rate and rhythm, positive S1, S2. No murmurs, rubs or gallops that I can appreciate Abdomen: Soft, non-tender to palpation, normal active bowel sounds to all quadrants. No palpable masses, no organomegaly and abdominal bruits. Extremities: 2+ pulses in the upper extremities that are equal bilaterally, 2+ pulses in the lower extremities that are equal bilaterally. Non-edematous. Moves all extremities well, sensation to all extremities are noted. Skin: Warm, dry, intact. Back: Normal alignment, positive right flank tenderness to percussion. Course 2 Vital Signs: Vital signs: Vital Signs Temperature 97.9 F 05/24/23 22:15 Pulse Rate 63 05/24/23 23:24 Respiratory Rate 20 H 05/24/23 22:15 Blood Pressure 116/66 05/24/23 23:24 Pulse Oximetry 92 05/24/23 23:24 Oxygen Delivery Me thod Room Air 05/24/23 22:15 MDM - Nausea/Vomiting/Diarrhea Medical Decision Making Physical exam completed and documented I did repeat the patient's CBC and it does show that she has an elevated white blood cell count that is increased to 15.5. I did repeat a CMP that demonstrated a slightly low potassium at 3.4. Repeat urinalysis was consistent with previous findings of urinary tract infection. I did provide the patient IV antibiotics as well as a CT scan to rule out pyelonephritis. After discussion with the patient regarding importance of continuing her antibiotics and increasing her by mouth intake patient states that she feels much better after she received the antibiotics, IV fluid rehydration and pain medication. She has had no additional episodes of nausea or vomiting while in the emergency department. She appears to be much more comfortable. Medical Records I reviewed the patient's medical records. Lab Data 05/24/23 22:52 05/24/23 22:52 Radiology Impressions Abdomen/Pelvis CT 05/25/23 00:05 IMPRESSION: Tiny amount of air within mildly thickened incompletely distended urinary bladder. Differential diagnosis includes recent catheterization versus infection/cystitis. Laboratory Results WBC 15.57 10^3/uL (3.29-11.43) H 05/24/23 22:52 RBC 4.33 10^6/uL (3.85-5.65) 05/24/23 22:52 Hgb 13.30 g/dL (11.27-16.99) 05/24/23 22:52 Hct 39.2 % (36-47) 05/24/23 22:52 MCV 90.5 fl (85-98) 05/24/23 22:52 MCH 30.7 pg (27-33) 05/24/23 22:52 MCHC 33.9 g/dL (30-55) 05/24/23 22:52 RDW 12.8 % (12.1-15.1) 05/24/23 22:52 Plt Count 237 10^3/cmm (157-399) 05/24/23 22:52 MPV 11.8 fL (7.4-10.4) H 05/24/23 22:52 Neut % (Auto) 72.8 % 05/24/23 22:52 Lymph % (Auto) 20.7 % 05/24/23 22:52 [place] % (Auto) 4.9 % 05/24/23 22:52 Eos % (Auto) 0.7 % 05/24/23 22:52 Baso % (Auto) 0.5 % 05/24/23 22:52 Neut # (Auto) 11.33 10^3/uL (1.8-7.7) H 05/24/23 22:52 Lymph # (Auto) 3.2 10^3/uL (0.8-4.8) 05/24/23 22:52 [place] # (Auto) 0.8 10^3/uL (0.2-0.9) 05/24/23 22:52 Eos # (Auto) 0.1 10^3/uL (0.0-0.8) 05/24/23 22:52 Baso # (Auto) 0.1 10^3/uL (0.0-0.1) 05/24/23 22:52 Nucleated RBC % (auto) 0 % 05/24/23 22:52 Nucleated RBCs # 0.0 /100WBC 05/24/23 22:52 Sodium 140 mmol/L (136-145) 05/24/23 22:52 Potassium 3.4 mmol/L (3.5-5.1) L 05/24/23 22:52 Chloride 107 mmol/L (98-107) 05/24/23 22:52 Carbon Dioxide 20 mmol/L (22-29) L 05/24/23 22:52 Anion Gap 16.4 (5-19) 05/24/23 22:52 BUN 6 mg/dL (6-20) 05/24/23 22:52 Creatinine 0.6 mg/dL (0.5-0.9) 05/24/23 22:52 GFR Calculation 119.9 mL/min (90-130) 05/24/23 22:52 Glucose 111 mg/dL (65-115) 05/24/23 22:52 Calculated Osmolality 288 mOsm/kg (285-295) 05/24/23 22:52 Calcium 9.1 mg/dL (8.5-10.5) 05/24/23 22:52 Total Bilirubin 0.3 mg/dL (0.15-1.2) 05/24/23 22:52 AST 12 U/L (0-32) 05/24/23 22:52 ALT 12 U/L (0-33) 05/24/23 22:52 Alkaline Phosphatase 86 U/L (35-105) 05/24/23 22:52 Total Protein 6.9 g/dL (6.6-8.7) 05/24/23 22:52 Albumin 4.2 g/dL (3.5-5.2) 05/24/23 22:52 Globulin 2.7 g/dL (1.3-4.6) 05/24/23 22:52 Procalcitonin 0.02 ng/mL (0-0.5) 05/24/23 22:52 HCG, Qual Negative (Negative) 05/24/23 22:46 Urine Color Yellow (Yellow) 05/25/23 00:43 Urine Appearance Clear (CLEAR) 05/25/23 00:43 Urine pH 7 (5-7) 05/25/23 00:43 Ur Specific [place] 1.005 (1.005-1.030) 05/25/23 00:43 Urine Protein Trace (Negative) H 05/25/23 00:43 Urine Glucose (UA) Norm (Normal) 05/25/23 00:43 Urine Ketones Negative (Negative) 05/25/23 00:43 Urine Blood 3+ (Negative) H 05/25/23 00:43 Urine Nitrate Negative (Negative) 05/25/23 00:43 Urine Bilirubin Neg (Negative) 05/25/23 00:43 Urine Urobilinogen Neg mg/dL (Negative) 05/25/23 00:43 Ur Leukocyte Esterase Negative (Negative) 05/25/23 00:43 Urine RBC 5-10 /hpf (0-2) H 05/25/23 00:43 Urine WBC None /hpf (0-5) 05/25/23 00:43 Ur Squamous Epith Cells 5-10 /hpf (0-5) H 05/25/23 00:43 Amorphous Sediment Not Reportable 05/25/23 00:43 Urine Bacteria Trace /hpf (NONE) 05/25/23 00:43 Urine Mucus Trace /hpf 05/25/23 00:43 Urine Opiates Screen Negative ng/mL (Negative) 05/25/23 00:43 Ur Barbiturates Screen Negative ng/mL (Negative) 05/25/23 00:43 Ur Phencyclidine Scrn Negative ng/mL (Negative) 05/25/23 00:43 Ur Amphetamines Screen Negative ng/mL (Negative) 05/25/23 00:43 U Benzodiazepines Scrn Negative ng/mL (Negative) 05/25/23 00:43 Urine Cocaine Screen Negative ng/mL (Negative) 05/25/23 00:43 U Marijuana (THC) Screen Positive ng/mL (Negative) H 05/25/23 00:43 All radiology interpretation(s) finalized by discharge Discharge Plan Discharge Patient Disposition: Home Clinical Impression: Right flank pain, Nausea & vomiting Urinary tract infection Qualifiers: Urinary tract infection type: acute cystitis Hematuria presence: without hematuria Qualified Code(s): N30.00 - Acute cystitis without hematuria Condition: Stable Prescriptions: No Action Macrobid 100 mg capsule 100 mg PO BID 7 Days Qty: 14 0RF Rx Instructions: must administer with a meal/food ondansetron 4 mg tablet,disintegrating 4 mg PO TID PRN (Reason: nausea and vomiting) Qty: 60 0RF Discharge Orders: Discharge ED (Routine); Ordered 05/25/23 Ordered By: Jalil Martinez Referrals: Citlalli Meyer FNP [Primary Care Provider] - Discharge Diet: Usual diet Discharge Activity: Resume usual activity Patient Instructions: Opioid Safety, Pain Management Activity Restrictions/Additional Instructions: Activity Restrictions/Additional Instructions: Thank you for choosing [facility] for your healthcare needs today. Please realize that you were seen in the Emergency Department and that we are providing you with an emergency medical screening exam and this may not be a complete and all inclusive of all the testing and or medical work-up that you may need to determine your ailment or severity of your illness. It is very important that you follow-up as instructed with your Primary care provider or Specialist for additional evaluation and to discuss your medical treatment plan. Coding Level of Care Code ED Airplane Pilot Chief for Matthew Stevens
[2023-05-25] MEDS: haloperidol inj 5 mg/mL INJ 1 mL IVP (01:54)
== END 2023-05-25 02:24 | disposition home or self-care (01) ==
PROVIDERS: Emergency Provider Internal Medicine; PCP Nurse Practitioner Family
DX: N30.00 Acute cystitis without hematuria (principal); R11.2 Nausea with vomiting, unspecified
CPT/HCPCS: 36415; 74177; 80053; 80306; 81001; 81025; 84145; 85025; 96361; 96365; 96375; 99285; J1630; J1885; J1956; J7030; Q9967